=== PATIENT | male | born 1960 | race Hispanic/Latino ===

== ENCOUNTER 2016-12-07 21:22 | Emergency (ER) | payer MEDICARE ==
--- NOTE | 2016-12-07 22:17 | RAD ---
THREE VIEWS RIGHT SHOULDER: 12/07/16 HISTORY: Fall with right shoulder pain. AP, internally, externally and scapular Y-views right shoulder is obtained. No evidence of right shoulder fractures, subluxations or bony lesions seen. IMPRESSION: Normal three views right shoulder. POS: [facility]
[2016-12-07] MEDS ORDERED: HYDROcodone/Acetaminophen 10/325 mg Tablet ONE (23:28)
== END 2016-12-07 23:34 | disposition home or self-care (01) ==
LOC: MADERS 21:22
DX: S40.011A Contusion of right shoulder, initial encounter (principal); E11.9 Type 2 diabetes mellitus without complications; E78.5 Hyperlipidemia, unspecified; I10 Essential (primary) hypertension; F17.210 Nicotine dependence, cigarettes, uncomplicated; W18.30XA Fall on same level, unspecified, initial encounter

== ENCOUNTER 2017-04-08 13:08 | Emergency (ER) | payer MEDICARE ==
[2017-04-08] MEDS ORDERED: Tetracaine 0.5% OPHTH SOLN/PF 4 ML BOT ONE (13:28)
== END 2017-04-08 13:48 | disposition home or self-care (01) ==
LOC: MADERS 13:08
DX: S05.01XA Injury of conjunctiva and corneal abrasion without foreign body, right eye, initial encounter (principal); E11.9 Type 2 diabetes mellitus without complications; E78.5 Hyperlipidemia, unspecified; F32.9 Major depressive disorder, single episode, unspecified; F41.9 Anxiety disorder, unspecified; F17.210 Nicotine dependence, cigarettes, uncomplicated; I10 Essential (primary) hypertension; Z79.84 Long term (current) use of oral hypoglycemic drugs; Z79.899 Other long term (current) drug therapy
CPT/HCPCS: 99283

== ENCOUNTER 2020-02-29 03:55 | Emergency (ER) | payer MEDICARE, OTHER ==
[2020-02-29 04:37] LABS: #Basophils 0.1 thou/uL (0.0-0.2); #Eosinphils 0.1 thou/uL (0.0-0.7); #Lymphocytes 4.8 thou/uL (1.20-3.40); #Monocytes 0.8 thou/uL (0.11-0.59); %Basophils 1.1 % (0.0-1.0); %Eosinophils 1.1 % (0.0-10.0); %Lymphocytes 44.5 % (21.0-51.0); %Monocytes 7.1 % (0.0-10.0); %Neutrophils 46.3 % (42.0-75.0); Hemoglobin 12.6 g/dL (14.0-18.0); Mean Corpuscular HGB CONC 34.1 g/dL (32.0-36.0); Mean Corpuscular Hemoglobin 29.3 pg (27.0-31.0); Mean Corpuscular Volume 85.8 fL (78.0-98.0); Mean Platelet Volume 6.1 fL (7.4-10.4); Platelet Count 367 thou/uL (130-400); RBC Distribution Width 12.4 % (11.5-14.5); White Blood Cell (WBC) Count 10.8 thou/uL (4.8-10.8)
[2020-02-29] MEDS ORDERED: Sodium Chloride 0.9% 1,000 ML ONE (04:38)
[2020-02-29 04:47] LABS: ALT (SGPT) 18 U/L (8-55); AST (SGOT) 15 U/L (5-34); Acetaminophen Less than 6.0 mcg/mL (10.0-30.0); Albumin 4.8 g/dL (3.4-4.8); Alcohol 173 mg/dL (Less than 10); Alkaline Phosphatase 73 U/L (40-110); Anion Gap 22 mmol/L (10-20); BUN (Urea Nitrogen) 8 mg/dL (8.4-25.7); Bilirubin, Total 0.5 mg/dL (0.2-1.2); Calc. Creatinine Clearance 0 mL/min (70-130); Calcium 9.1 mg/dL (7.8-10.44); Carbon Dioxide 21 mmol/L (23-31); Chloride 90 mmol/L (98-107); Estimated GFR-MDRD Greater than 90; Globulin 3.3 g/dL (2.4-3.5); Glucose 115 mg/dL (80-115); Potassium 3.7 mmol/L (3.5-5.1); Protein, Total 8.1 g/dL (5.8-8.1); Salicylate Less than 8.0 mg/dL (15.0-30.0); Sodium 129 mmol/L (136-145)
[2020-02-29 04:56] LABS: Amphetamine Not Detected (NotDetected); Barbiturates Screen Not Detected (NotDetected); Benzodiazepine Screen Not Detected (NotDetected); Cocaine Metabolite Screen Not Detected (NotDetected); Methadone Not Detected (NotDetected); Methamphetamine Not Detected (NotDetected); Opiate Screen Detected (NotDetected); Oxycodone Screen Not Detected (NotDetected); Phencyclidine (PCP) Not Detected (NotDetected); THC/Cannabinoid Screen Not Detected (NotDetected); Tricyclic Screen Not Detected (NotDetected)
[2020-02-29 04:57] LABS: Medtox Control Line Valid? VALID (VALID)
[2020-02-29] MEDS ORDERED: Mag-Al Plus 1200 MG/1200 MG/120 MG/30 ML UDCUP ONE (05:23)
== END 2020-02-29 05:43 ==
LOC: MADERS 03:55
DX: R45.851 Suicidal ideations (principal); R45.850 Homicidal ideations; E87.1 Hypo-osmolality and hyponatremia; F10.129 Alcohol abuse with intoxication, unspecified; E11.9 Type 2 diabetes mellitus without complications; E78.5 Hyperlipidemia, unspecified; E78.00 Pure hypercholesterolemia, unspecified; I10 Essential (primary) hypertension; G89.29 Other chronic pain; F17.210 Nicotine dependence, cigarettes, uncomplicated; F32.9 Major depressive disorder, single episode, unspecified; F41.9 Anxiety disorder, unspecified; Z79.899 Other long term (current) drug therapy
CPT/HCPCS: 36415; 80053; 80306; 80307; 85025; 99284; J7050

== ENCOUNTER 2020-08-24 23:05 | Emergency (ER) | payer OTHER, MEDICARE ==
[2020-08-24] MEDS ORDERED: Clindamycin 150 MG CAP ONE (23:59)
[2020-08-24] MEDS ORDERED: Tranexamic Acid 1,000 MG/10 ML VIAL ONE (23:59)
[2020-08-24] MEDS ORDERED: Ibuprofen 800 MG TAB ONE (23:59)
[2020-08-25] MEDS ORDERED: traMADol HCl 50 MG TAB ONE ×2
== END 2020-08-25 00:08 | disposition home or self-care (01) ==
LOC: MADERS 23:05
DX: S61.551A Open bite of right wrist, initial encounter (principal); L03.114 Cellulitis of left upper limb; E11.9 Type 2 diabetes mellitus without complications; E78.5 Hyperlipidemia, unspecified; E78.00 Pure hypercholesterolemia, unspecified; I10 Essential (primary) hypertension; F17.210 Nicotine dependence, cigarettes, uncomplicated; W54.0XXA Bitten by dog, initial encounter

== ENCOUNTER 2020-08-29 21:39 | Emergency (ER) | payer OTHER, MEDICARE ==
[2020-08-29] MEDS ORDERED: Amoxicillin/Potassium Clav 875 MG TAB ONE (22:09)
[2020-08-29] MEDS ORDERED: traMADol HCl 50 MG TAB ONE (22:09)
[2020-08-29] MEDS ORDERED: Bacitracin 1 PK ONE (22:30)
== END 2020-08-29 22:35 | disposition home or self-care (01) ==
LOC: MADERS 21:39
DX: S61.532A Puncture wound without foreign body of left wrist, initial encounter (principal); E11.9 Type 2 diabetes mellitus without complications; E78.5 Hyperlipidemia, unspecified; E78.00 Pure hypercholesterolemia, unspecified; I10 Essential (primary) hypertension; F17.210 Nicotine dependence, cigarettes, uncomplicated; Z79.899 Other long term (current) drug therapy; W54.0XXA Bitten by dog, initial encounter
CPT/HCPCS: 87070; 87077; 87205; 99283

== ENCOUNTER 2021-08-05 01:57 | Emergency (ER) | payer MEDICARE | END 2021-08-05 03:00 | disposition home or self-care (01) | LOC: MADERS 01:57 | DX: T83.091A Other mechanical complication of indwelling urethral catheter, initial encounter (principal); I10 Essential (primary) hypertension; E11.9 Type 2 diabetes mellitus without complications; E78.5 Hyperlipidemia, unspecified; E78.00 Pure hypercholesterolemia, unspecified; F17.210 Nicotine dependence, cigarettes, uncomplicated; Z79.84 Long term (current) use of oral hypoglycemic drugs; Z79.899 Other long term (current) drug therapy | CPT/HCPCS: 51798 ==